=== PATIENT | male | born 1980 | race African-American/Black ===

== ENCOUNTER 2018-11-04 00:21 | Emergency (ER) | payer OTHER ==
[~2018-11-04] VITALS: Ht 185.4 cm; Wt 124.7 kg
[2018-11-04] MEDS ORDERED: MOBIC15 MG PO (01:09)
[2018-11-04] MEDS ORDERED: PENICILLIN V P500 MG PO (01:58)
[2018-11-04 02:39] VITALS: BP 142/78
== END 2018-11-04 02:40 | disposition home or self-care (01) ==
LOC: ER 00:21
DX: K08.89 Other specified disorders of teeth and supporting structures (principal)